=== PATIENT | male | born 1945 | race Caucasian/White ===

== ENCOUNTER → 2018-05-01 | Outpatient (CLI) | payer MEDICARE | END | disposition home or self-care (01) | LOC: CFH 06:58 | PROVIDERS: ATTEND Nurse Practitioner | DX: I70.0 Atherosclerosis of aorta (principal); F17.210 Nicotine dependence, cigarettes, uncomplicated | CPT/HCPCS: 76706 ==

== ENCOUNTER 2018-08-09 07:31 | Outpatient (CLI) | payer MEDICARE | END 2018-08-09 23:59 | disposition home or self-care (01) | LOC: CVU 07:31 | PROVIDERS: ATTEND Internal Medicine Cardiovascular Disease | DX: I70.203 Unspecified atherosclerosis of native arteries of extremities, bilateral legs (principal); I08.0 Rheumatic disorders of both mitral and aortic valves; I71.4 Abdominal aortic aneurysm, without rupture; I10 Essential (primary) hypertension; Z72.0 Tobacco use | CPT/HCPCS: 93306; 93978 ==

== ENCOUNTER → 2018-12-31 | Outpatient (CLI) | payer MEDICARE | END | disposition home or self-care (01) | LOC: RAD 09:41 | PROVIDERS: ATTEND Family Medicine | DX: M89.9 Disorder of bone, unspecified (principal); R91.8 Other nonspecific abnormal finding of lung field | CPT/HCPCS: 78306; A9503 ==

== ENCOUNTER 2019-01-14 10:58 | Outpatient (CLI) | payer MEDICARE | END 2019-01-14 23:59 | disposition home or self-care (01) | LOC: CFH 10:58 | PROVIDERS: ATTEND Family Medicine | DX: R13.10 Dysphagia, unspecified (principal) | CPT/HCPCS: 76536 ==